=== PATIENT | male | born 1985 | race Caucasian/White ===

== ENCOUNTER 2021-05-09 08:28 | Outpatient (CLI) | payer MEDICARE, MEDICAID | END 2021-05-09 08:29 | disposition home or self-care (01) | LOC: CSHWCC 08:28 | PROVIDERS: ATTEND Nurse Practitioner Family | DX: L89.223 Pressure ulcer of left hip, stage 3 (principal); L89.323 Pressure ulcer of left buttock, stage 3; L89.313 Pressure ulcer of right buttock, stage 3 | CPT/HCPCS: 97139; G0463; 99213 ==

== ENCOUNTER 2021-08-01 13:58 | Outpatient (CLI) | payer MEDICARE, MEDICAID | END 2021-08-01 13:59 | disposition home or self-care (01) | LOC: CSHWCC 13:58 | PROVIDERS: ATTEND Nurse Practitioner Family | DX: L89.323 Pressure ulcer of left buttock, stage 3 (principal); L89.223 Pressure ulcer of left hip, stage 3; L89.313 Pressure ulcer of right buttock, stage 3 | CPT/HCPCS: 97605 ==

== ENCOUNTER 2021-08-15 08:04 | Outpatient (CLI) | payer MEDICARE, MEDICAID | END 2021-08-15 08:05 | disposition home or self-care (01) | LOC: CSHWCC 08:04 | PROVIDERS: ATTEND Nurse Practitioner Family | DX: L89.223 Pressure ulcer of left hip, stage 3 (principal); L89.323 Pressure ulcer of left buttock, stage 3; L89.313 Pressure ulcer of right buttock, stage 3; M86.68 Other chronic osteomyelitis, other site | CPT/HCPCS: 97605 ==

== ENCOUNTER 2021-09-19 09:19 | Outpatient (CLI) | payer MEDICARE, MEDICAID | END 2021-09-19 09:20 | disposition home or self-care (01) | LOC: CSHCT 09:19 | PROVIDERS: ATTEND Internal Medicine Infectious Disease | DX: L89.204 Pressure ulcer of unspecified hip, stage 4 (principal); K52.9 Noninfective gastroenteritis and colitis, unspecified; L89.899 Pressure ulcer of other site, unspecified stage | CPT/HCPCS: 72193 ==

== ENCOUNTER 2021-10-15 08:05 | Outpatient (CLI) | payer MEDICARE, MEDICAID | END 2021-10-15 08:06 | disposition home or self-care (01) | LOC: CSHWCC 08:05 | PROVIDERS: ATTEND Nurse Practitioner Family | DX: L89.223 Pressure ulcer of left hip, stage 3 (principal); L89.323 Pressure ulcer of left buttock, stage 3; L89.313 Pressure ulcer of right buttock, stage 3 ==

== ENCOUNTER 2021-10-29 08:03 | Outpatient (CLI) | payer MEDICARE, MEDICAID | END 2021-10-29 08:04 | disposition home or self-care (01) | LOC: CSHWCC 08:03 | PROVIDERS: ATTEND Nurse Practitioner Family | DX: L89.223 Pressure ulcer of left hip, stage 3 (principal); L89.323 Pressure ulcer of left buttock, stage 3; L89.313 Pressure ulcer of right buttock, stage 3 | CPT/HCPCS: 99214; G0463 ==

== ENCOUNTER 2021-11-20 13:43 | Outpatient (CLI) | payer MEDICARE, MEDICAID | END 2021-11-20 13:44 | disposition home or self-care (01) | LOC: CSHWCC 13:43 | PROVIDERS: ATTEND Nurse Practitioner Family | DX: L89.223 Pressure ulcer of left hip, stage 3 (principal); L89.323 Pressure ulcer of left buttock, stage 3; L89.313 Pressure ulcer of right buttock, stage 3 ==

== ENCOUNTER 2022-01-21 08:20 | Outpatient (CLI) | payer MEDICARE, MEDICAID | END 2022-01-21 08:21 | disposition home or self-care (01) | LOC: CSHWCC 08:20 | PROVIDERS: ATTEND Preventive Medicine Undersea and Hyperbaric Medicine | DX: L89.223 Pressure ulcer of left hip, stage 3 (principal); L89.323 Pressure ulcer of left buttock, stage 3; L89.313 Pressure ulcer of right buttock, stage 3 | CPT/HCPCS: 99214; G0463 ==

== ENCOUNTER 2022-02-11 08:17 | Outpatient (CLI) | payer MEDICARE, MEDICAID | END 2022-02-11 08:18 | disposition home or self-care (01) | LOC: CSHWCC 08:17 | PROVIDERS: ATTEND Nurse Practitioner Family | DX: L89.223 Pressure ulcer of left hip, stage 3 (principal); L89.323 Pressure ulcer of left buttock, stage 3; L89.313 Pressure ulcer of right buttock, stage 3; S91.302D Unspecified open wound, left foot, subsequent encounter; S91.301D Unspecified open wound, right foot, subsequent encounter | CPT/HCPCS: 97605 ==

== ENCOUNTER 2022-02-27 08:45 | Outpatient (CLI) | payer MEDICARE, MEDICAID | END 2022-02-27 08:46 | disposition home or self-care (01) | LOC: CSHWCC 08:45 | PROVIDERS: ATTEND Nurse Practitioner Family | DX: L89.223 Pressure ulcer of left hip, stage 3 (principal); L89.323 Pressure ulcer of left buttock, stage 3; L89.313 Pressure ulcer of right buttock, stage 3; S91.302D Unspecified open wound, left foot, subsequent encounter; S91.301D Unspecified open wound, right foot, subsequent encounter ==

== ENCOUNTER 2022-03-04 08:09 | Outpatient (CLI) | payer MEDICARE, MEDICAID | END 2022-03-04 08:10 | disposition home or self-care (01) | LOC: CSHWCC 08:09 | PROVIDERS: ATTEND Nurse Practitioner Family | DX: L89.223 Pressure ulcer of left hip, stage 3 (principal); L89.323 Pressure ulcer of left buttock, stage 3; L89.313 Pressure ulcer of right buttock, stage 3; S91.302D Unspecified open wound, left foot, subsequent encounter; S91.301D Unspecified open wound, right foot, subsequent encounter ==

== ENCOUNTER 2022-03-25 08:15 | Outpatient (CLI) | payer MEDICARE, MEDICAID | END 2022-03-25 08:16 | disposition home or self-care (01) | LOC: CSHWCC 08:15 | PROVIDERS: ATTEND Nurse Practitioner Family | DX: L89.313 Pressure ulcer of right buttock, stage 3 (principal); L89.323 Pressure ulcer of left buttock, stage 3; L89.223 Pressure ulcer of left hip, stage 3 | CPT/HCPCS: 97605 ==

== ENCOUNTER 2022-04-30 08:16 | Outpatient (CLI) | payer MEDICARE, MEDICAID | END 2022-04-30 08:17 | disposition home or self-care (01) | LOC: CSHWCC 08:16 | PROVIDERS: ATTEND Nurse Practitioner Family | DX: L89.313 Pressure ulcer of right buttock, stage 3 (principal); L89.323 Pressure ulcer of left buttock, stage 3; L89.223 Pressure ulcer of left hip, stage 3 | CPT/HCPCS: 99214; G0463 ==

== ENCOUNTER 2022-05-20 08:16 | Outpatient (CLI) | payer MEDICARE, MEDICAID | END 2022-05-20 08:17 | disposition home or self-care (01) | LOC: CSHWCC 08:16 | PROVIDERS: ATTEND Nurse Practitioner Family | DX: M79.10 Myalgia, unspecified site (principal) | CPT/HCPCS: 99214; G0463 ==

== ENCOUNTER 2022-06-18 08:19 | Outpatient (CLI) | payer MEDICARE, MEDICAID | END 2022-06-18 08:20 | disposition home or self-care (01) | LOC: CSHWCC 08:19 | PROVIDERS: ATTEND Nurse Practitioner Family | DX: L89.223 Pressure ulcer of left hip, stage 3 (principal); L89.323 Pressure ulcer of left buttock, stage 3; L89.313 Pressure ulcer of right buttock, stage 3 | CPT/HCPCS: 97139; G0463; 99213 ==

== ENCOUNTER 2022-07-09 13:06 | Outpatient (CLI) | payer MEDICARE, MEDICAID | END 2022-07-09 13:07 | disposition home or self-care (01) | LOC: CSHWCC 13:06 | PROVIDERS: ATTEND Nurse Practitioner Family | DX: L89.223 Pressure ulcer of left hip, stage 3 (principal); L89.323 Pressure ulcer of left buttock, stage 3; L89.313 Pressure ulcer of right buttock, stage 3 | CPT/HCPCS: 97139; G0463; 99213 ==

== ENCOUNTER 2022-07-30 12:54 | Outpatient (CLI) | payer MEDICARE, MEDICAID | END 2022-07-30 12:55 | disposition home or self-care (01) | LOC: CSHWCC 12:54 | PROVIDERS: ATTEND Nurse Practitioner Family | DX: L89.223 Pressure ulcer of left hip, stage 3 (principal); L89.323 Pressure ulcer of left buttock, stage 3; L89.313 Pressure ulcer of right buttock, stage 3 | CPT/HCPCS: 17250 ==

== ENCOUNTER 2022-08-13 08:03 | Outpatient (CLI) | payer MEDICARE, MEDICAID | END 2022-08-13 08:04 | disposition home or self-care (01) | LOC: CSHWCC 08:03 | PROVIDERS: ATTEND Nurse Practitioner Family | DX: L89.223 Pressure ulcer of left hip, stage 3 (principal); L89.323 Pressure ulcer of left buttock, stage 3; L89.313 Pressure ulcer of right buttock, stage 3 | CPT/HCPCS: 97139; G0463; 99214 ==

== ENCOUNTER 2022-12-16 14:34 | Outpatient (CLI) | payer MEDICARE, MEDICAID | END 2022-12-16 14:35 | disposition home or self-care (01) | LOC: CSHWCC 14:34 | PROVIDERS: ATTEND Nurse Practitioner Family | DX: S51.001D Unspecified open wound of right elbow, subsequent encounter (principal); L89.323 Pressure ulcer of left buttock, stage 3; L89.313 Pressure ulcer of right buttock, stage 3 | CPT/HCPCS: 97139; G0463; 99213 ==

== ENCOUNTER 2024-11-17 19:26 | Emergency (ER) | payer MEDICARE, MEDICAID ==
[2024-11-17 20:29] LABS: #Basophils 0.05 10x3/uL (0.0-0.2); #Eosinophils 0.21 10x3/uL (0.0-0.5); #Monocytes 0.66 10x3/uL (0.0-1.1); #Neutrophils 3.69 10x3/uL (1.5-8.4); %Basophils 0.8 % (0.0-2.0); %Eosinophils 3.5 % (0.0-6.0); %Lymphocytes 23.8 % (18.0-47.0); %Monocytes 10.9 % (0.0-10.0); %Neutrophils 60.7 % (40.0-75.0); Hematocrit 37.4 % (38.8-50.0); Hemoglobin 11.8 g/dL (13.5-17.5); Mean Corpuscular Hemoglobin 27.8 pg (27.0-33.0); Mean Corpuscular Volume 88.2 fL (81.2-95.1); Platelet Count 168 10x3/uL (150-450); Red Blood Cell (RBC) Count 4.24 10x6/uL (4.32-5.72); White Blood Cell (WBC) Count 6.08 10x3/uL (3.5-10.5)
[2024-11-17 20:38] LABS: ALT (SGPT) 20 U/L (Less than 45); AST (SGOT) 25 U/L (11-34); Albumin 3.3 g/dL (3.1-4.5); Alkaline Phosphatase 100 U/L (40-110); Anion Gap 11 mmol/L (10-20); BUN (Urea Nitrogen) 9 mg/dL (8.9-20.6); Bilirubin, Total 0.2 mg/dL (0.3-1.2); Calc. Creatinine Clearance 0 mL/min (70-130); Calcium 9.0 mg/dL (7.8-10.44); Carbon Dioxide 26 mmol/L (22-29); Chloride 105 mmol/L (98-107); Globulin 3.9 g/dL (2.4-3.5); Glucose 111 mg/dL (70-105); Potassium 4.6 mmol/L (3.5-5.1); Sodium 137 mmol/L (136-145)
[2024-11-17 20:47] LABS: Glucose, Urine (Dipstick) Normal (Negative); Leukocyte 500 (Negative); Protein, Urine (Dipstick) 30 mg/dl (Neg-Trace); Specific Gravity, Urine 1.010 (1.005-1.030)
[2024-11-17] MEDS ORDERED: cefTRIAXone (ROCEPHIN) 2 GM VIAL ONE (21:07)
[2024-11-17 21:18] LABS: Bacteria/HPF 1+ HPF (None Seen); CAUTI Indications for Culture Fever or rigors; RBC/HPF 0-3 HPF (0-3); Urine Culture Reflex Yes Yes; WBC/HPF Greater than 50 HPF (0-3)
[2024-11-17] MEDS ORDERED: cefTRIAXone (ROCEPHIN) 1 GM VIAL ONE (21:23)
== END 2024-11-17 22:49 | disposition home or self-care (01) ==
LOC: CSHERS 19:26
DX: N39.0 Urinary tract infection, site not specified (principal); F17.290 Nicotine dependence, other tobacco product, uncomplicated; Z79.899 Other long term (current) drug therapy
CPT/HCPCS: 80053; 81001; 83605; 85025; 87040; 87077; 87086; 96372; 99283; J0696